=== PATIENT | male | born 1960 | race Caucasian/White ===

== ENCOUNTER 2018-05-04 02:00 | Emergency (ER) | payer OTHER, BC ==
[2018-05-04 02:20] VITALS: TEMP 97.3; BMI 30.2
--- NOTE | 2018-05-04 02:20 | PDOC ---
History of Present Illness - General Chief Complaint: Pain, Acute Stated Complaint: ABD PAIN - History of Present Illness Initial Comments: The patient is a 57M w/ a history of HTN who presents for evaluation of 1m of R flank pain. He reports the pain is intermittent, colickly, worsening, and now radiates towards his R inguinal region. He endorses associated NBNB vomiting when the pain is at its maximum. He has tried taking Naproxen w/ minimal relief. He reports being evaluated at [facility] on Monday w/ a UA w/ +blood. Denies fevers/chills, ENCISO, vision changes, chest pain, SOB, dysuria, gross hematuria, or changes in sensation 05/04/18 02:38 Past History - Past Medical History Allergies/Adverse Reactions: Allergies Allergy/AdvReac Type Severity Reaction Status Date / Time No Known Allergies Allergy Verified 05/04/18 02:20 Home Medications: Ambulatory Orders Amlodipine Besylate [Norvasc -] 5 mg PO DAILY #30 tablet 05/04/18 Review of Systems - Review of Systems Able to Perform ROS?: Yes Comments:: GENERAL/CONSTITUTIONAL: No fever or chills. No weakness HEAD, EYES, EARS, NOSE AND THROAT: No change in vision. No ear pain or discharge. No sore throat CARDIOVASCULAR: No chest pain or shortness of breath RESPIRATORY: Denies cough, hemoptysis GASTROINTESTINAL: No diarrhea or constipation GENITOURINARY: per HPI MUSCULOSKELETAL: No joint or muscle swelling or pain. No neck or back pain SKIN: No rash NEUROLOGIC: No headache, vertigo, loss of consciousness, or change in strength/ sensation ENDOCRINE: No increased thirst. No abnormal weight change HEMATOLOGIC/LYMPHATIC: No anemia, easy bleeding, or history of blood clots ALLERGIC/IMMUNOLOGIC: No hives or skin allergy 05/04/18 02:20 Is the patient limited Palauan proficient: No *Physical Exam - Vital Signs Vital Signs Temp Pulse Resp BP Pulse Ox 97.3 F L 74 18 179/85 H 96 05/04/18 02:19 05/04/18 02:19 05/04/18 02:19 05/04/18 02:19 05/04/18 02:05/04/18 02:42 - Physical Exam Comments: GENERAL: Awake, alert, non-toxic appearing, and fully oriented, in no acute distress HEAD: No signs of trauma, normocephalic, atraumatic EYES: PERRLA, EOMI, sclera anicteric, conjunctiva clear ENT: Hearing grossly normal, nares patent, oropharynx clear without exudates. Moist mucosa LUNGS: No distress, speaks full sentences, clear to auscultation bilaterally HEART: Regular rate and rhythm, normal S1 and S2, no murmurs appreciated, peripheral pulses normal and equal bilaterally BACK: +R CVAT ABDOMEN: Soft, nontender, normoactive bowel sounds. No guarding, no rebound. No masses EXTREMITIES : Normal inspection, Normal range of motion, no edema. No clubbing or cyanosis NEUROLOGICAL: Cranial nerves II through XII grossly intact. Normal speech, no focal sensorimotor deficits SKIN: Warm, Dry 05/04/18 02:20 Medical Decision Making - Medical Decision Making The patient is a 57M w/ a history of HTN who presents for evaluation of 1m of worsening R flank pain concerning for nephrolithiasis. Pt hypertensive on arrival, likely 2/2 pain and running out of home meds. ED Course UA, UCx CT spiral to evaluate for nephrolithiasis Toradol 30mg IV once for pain 05/04/18 02:43 Pt w/ Hx of HTN on Amlodipine 5mg PO daily. Pt ran out of Rx 2/2 no longer having a PMD. Will Rx Amlodipine 5mg PO daily to bridge pt to PMD establishment/ appointment 05/04/18 02:45 CT w/ R nephrolithiasis on my read -Formal read pending Nausea/Vomiting -Zofran 4mg ODT once 05/04/18 03:08 CT w/ R nephrolithiasis, mild hydronephrosis UA w/o evidence of UTI Plan for D/C w/ Urology f/u Discharge instructions and return precautions given Patient in agreement and verbalized understanding Dispo: home 05/04/18 03:28 *DC/Admit/Observation/Transfer Diagnosis at time of Disposition: Nephrolithiasis Hypertension Qualifiers: Hypertension type: unspecified Qualified Code(s): I10 - Essential (primary) hypertension - Discharge Dispostion Disposition: HOME Condition at time of disposition: Stable Decision to Admit order: No - Referrals Referrals: [facility] – [place], [place] [facility] [place] [Provider Group] Daniel Mireles MD [Staff Physician] - Angela Cheek MD [Staff Physician] - Syed Tejada MD [Staff Physician] - - Patient Instructions Printed Discharge Instructions: Kidney Stones -- Adult Additional Instructions: You were seen in the Emergency Department for evaluation of right flank pain and were found to have a kidney stone. Please review the handout provided at discharge. Follow up with Urology, the contact information is in your discharge paperwork. You may continue to take Naproxen 500mg twice a day for pain. Return to the Emergency Department if you develop persistent pain, pain with urination , blood in your urine, inability to tolerate food, or any new/concerning symptoms. A prescription was sent to your pharmacy for Amlodipine 5mg daily for your high blood pressure. Please follow up with one of the referrals given for primary care, or a primary care provider of your choosing. It is important to establish care to maintain control of your blood pressure. - Post Discharge Activity
[2018-05-04] MEDS ORDERED: KETOROLAC TROMETHAMINE 30 MG/1 ML VIAL IM ONE (02:37)
--- NOTE | 2018-05-04 02:38 | PDOC ---
Attending Attestation - Resident Resident Name: Lloyd Malik - ED Attending Attestation I have performed the following: I have examined & evaluated the patient, The case was reviewed & discussed with the resident, I agree w/resident's findings & plan, Exceptions are as noted - HPI HPI: 05/04/18 04:22 57M pmh HTN with 1 month of progressively worsening episodes of R flank px. Current episode px is colicky, sharp, radiating to the R groin. A/w n/v when px spikes, no f/c, sob, cp, dysuria, hematuria - Physicial Exam PE: 05/04/18 04:24 Agree with exam as documented by resident +R CVAT - Medical Decision Making 05/04/18 04:24 Likely nephrolithiasis, consider hepatobiliary pathology, pancreatitis eval for obstruction, infection analgesia f/u imaging
[2018-05-04] MEDS ORDERED: KETOROLAC TROMETHAMINE 30 MG/1 ML VIAL ONE (02:58)
[2018-05-04] MEDS ORDERED: ONDANSETRON *ODT* 4 MG TABLET ONE (03:06)
[2018-05-04] MEDS ORDERED: ONDANSETRON *ODT* 4 MG TABLET SL ONE (03:06)
[2018-05-04 03:10] LABS: URINE APPEARANCE CLEAR; URINE BILIRUBIN NEGATIVE (<2.0 mg/dL); URINE COLOR LTYELLOW; URINE GLUCOSE (UA) 1+ (NEGATIVE); URINE KETONE NEGATIVE (NEGATIVE); URINE LEUK ESTERASE NEGATIVE (NEGATIVE); URINE NITRITE NEGATIVE (NEGATIVE); URINE PROTEIN NEGATIVE (NEGATIVE); URINE UROBILINOGEN NEGATIVE mg/dL (0.2-1.0)
[2018-05-04 04:37] VITALS: BP 166/98; PULSE 71
== END 2018-05-04 04:33 | disposition home or self-care (01) ==
LOC: JER 02:00
PROC: 3E0233Z Introduction of Anti-inflammatory into Muscle, Percutaneous Approach (ICD-10-PCS; principal; 2018-05-04)
DX: I10 Essential (primary) hypertension (principal); N20.0 Calculus of kidney
CPT/HCPCS: 74176; 81003; 87086; 99282-25; Q0162

== ENCOUNTER 2018-08-29 09:38 | Day surgery (SDC) | payer OTHER, BC ==
[2018-08-24 11:38] VITALS: BMI 30.5
[2018-08-29] MEDS ORDERED: LIDOCAINE HCL/PF 2% SDV 5ML VIAL ONE (10:50)
[2018-08-29 12:21] VITALS: BP 160/78
[2018-08-29 12:23] VITALS: PULSE 75; TEMP 98
--- NOTE | 2018-08-31 15:30 | PATH ---
Surgical Pathology Report Patient Name: ASHISH LU [facility]. Rec. #: [id number] /Age/Gender: 1960 (Age: 57) / M Account: [id number] Location: [facility] Taken: 08/29/2018 Received: 08/29/2018 Reported: 08/31/2018 Physicians: Tara Bullock M.D. Specimen(s) Received A: BX THICKENED FOLD JCT OF CECUM & ASCENDING COLON B: HOT SNARE POLYPECTOMY PROXIMAL TRANSVERSE COLON C: BX POLYP MID TRANSVERSE COLON Clinical History Surveillance colonoscopy. Postoperative diagnosis colon, polyps Final Diagnosis A. THICKENED FOLD,JCT OF CECUM AND ASCENDING COLON, BIOPSY: COLONIC MUCOSA SHOWING MILD SURFACE HYPERPLASTIC CHANGE. B. PROXIMAL TRANSVERSE COLON, POLYP, POLYPECTOMY: TUBULAR ADENOMA. C. MID TRANSVERSE COLON, POLYP, BIOPSY: TUBULAR ADENOMA. Electronically Signed Merry Jordan M.D. Gross Description A. Received in formalin, labeled, " bx thickened fold jct of cecum and ascending colon" is one piece of santiago tissue measuring 0.2 cm in greatest dimension. Entirely submitted in one cassette. B. received in formalin, labeled, "polypectomy, proximal transverse colon" are three pieces of santiago, tissue, ranging from 0.2-0.3 cm in greatest dimension. Entirely submitted in one cassette. C. received in formalin, labeled " bx polyp mid transverse colon"" is one piece of santiago tissue measuring 0.3 cm in greatest dimension. Entirely submitted in one cassette. AE/08/30/2018 ebram/08/30/2018
== END 2018-08-29 12:23 | disposition home or self-care (01) ==
LOC: FASU-ENDO 09:38
PROVIDERS: ATTEND Internal Medicine Gastroenterology
PROC: 0DBK8ZX Excision of Ascending Colon, Via Natural or Artificial Opening Endoscopic, Diagnostic (ICD-10-PCS; 2018-08-29)
PROC: 0DBL8ZX Excision of Transverse Colon, Via Natural or Artificial Opening Endoscopic, Diagnostic (ICD-10-PCS; 2018-08-29)
PROC: 0DBH8ZX Excision of Cecum, Via Natural or Artificial Opening Endoscopic, Diagnostic (ICD-10-PCS; 2018-08-29)
PROC: 0DBL8ZX Excision of Transverse Colon, Via Natural or Artificial Opening Endoscopic, Diagnostic (ICD-10-PCS; principal; 2018-08-29 11:15)
DX: Z86.010 Personal history of colon polyps (principal); D12.3 Benign neoplasm of transverse colon; K63.89 Other specified diseases of intestine; K64.2 Third degree hemorrhoids
CPT/HCPCS: 88305-TC

== ENCOUNTER 2021-04-23 13:48 | Emergency (ER) | payer OTHER, BC ==
[2021-04-23 13:56] VITALS: TEMP 98.6; BMI 30.5
[2021-04-23] MEDS ORDERED: SODIUM CHLORIDE 1,000 ML IV STA (14:59)
[2021-04-23] MEDS ORDERED: KETOROLAC TROMETHAMINE 30 MG/1 ML VIAL IVPUSH ONE (15:00)
[2021-04-23] MEDS ORDERED: ONDANSETRON 4 MG/2 ML VIAL IVPUSH ONE (15:33)
[2021-04-23] MEDS ORDERED: ONDANSETRON 4 MG/2 ML VIAL ONE (15:41)
[2021-04-23] MEDS ORDERED: KETOROLAC TROMETHAMINE 30 MG/1 ML VIAL ONE (15:41)
[2021-04-23 16:20] LABS: BASO % 0.3 % (0-2.0); HEMOGLOBIN 16.3 GM/dL (11.7-16.9); LYMPH % 8.2 % (8-40); MEAN CELL VOLUME 85.2 fl (80-96); MEAN PLT VOLUME 9.1 fl (7.5-11.1); MONO % 3.8 % (3.8-10.2); NEUT % 87.7 % (42.8-82.8); PLATELET COUNT 247 10^3/uL (134-434); RBC 5.63 M/mm3 (4.00-5.60); RDW 13.4 % (11.9-15.9); WHITE BLOOD COUNT 11.8 K/mm3 (4.0-10.0)
[2021-04-23 16:38] LABS: ALBUMIN 3.9 g/dl (3.4-5.0); CALCIUM 8.9 mg/dL (8.5-10.1)
[2021-04-23 16:39] LABS: BLOOD UREA NITROGEN 17.4 mg/dL (7-18)
[2021-04-23 16:41] LABS: CREATININE 1.7 mg/dL (0.55-1.3)
[2021-04-23 16:43] LABS: BILIRUBIN,TOTAL 0.6 mg/dL (0.2-1); TOT PROT 7.5 g/dl (6.4-8.2)
[2021-04-23 17:18] LABS: EPI CELLS 4 /uL (0-25.1); HYALINE CASTS 1 /uL (0-3.1); URINE APPEARANCE CLEAR; URINE BACTERIA 16 /uL (0-1359); URINE BILIRUBIN NEGATIVE (NEGATIVE); URINE COLOR YELLOW; URINE GLUCOSE (UA) 1+ (NEGATIVE); URINE KETONE TRACE (NEGATIVE); URINE LEUK ESTERASE NEGATIVE (NEGATIVE); URINE NITRITE NEGATIVE (NEGATIVE); URINE PROTEIN TRACE (NEGATIVE); URINE RBC 18 /uL (0-23.9); URINE UROBILINOGEN 0.2 mg/dL (0.2-1.0); URINE WBC 5 /uL (0-25.8)
[2021-04-23 18:38] VITALS: BP 160/83; PULSE 72
== END 2021-04-23 18:53 | disposition home or self-care (01) ==
LOC: JER 13:48
PROC: 3E033NZ Introduction of Analgesics, Hypnotics, Sedatives into Peripheral Vein, Percutaneous Approach (ICD-10-PCS; principal; 2021-04-23)
PROC: 3E0233Z Introduction of Anti-inflammatory into Muscle, Percutaneous Approach (ICD-10-PCS; 2021-04-23)
PROC: 3E0337Z Introduction of Electrolytic and Water Balance Substance into Peripheral Vein, Percutaneous Approach (ICD-10-PCS; 2021-04-23)
DX: R10.9 Unspecified abdominal pain (principal); N20.0 Calculus of kidney
CPT/HCPCS: 36415; 74176-TC; 80053; 81003; 83690; 85025; 87086; 99285-25

== ENCOUNTER 2022-11-30 10:49 | Day surgery (SDC) | payer BC, OTHER ==
[2022-11-21 15:27] VITALS: BMI 29.1
[2022-11-30 12:52] VITALS: RESP 16; TEMP 97.4
[2022-11-30 13:14] VITALS: BP 141/74; PULSE 87
== END 2022-11-30 13:15 | disposition home or self-care (01) ==
LOC: FASU-ENDO 10:49
PROVIDERS: ATTEND Internal Medicine Gastroenterology
PROC: 0DBL8ZX Excision of Transverse Colon, Via Natural or Artificial Opening Endoscopic, Diagnostic (ICD-10-PCS; 2022-11-30)
PROC: 0DBN8ZX Excision of Sigmoid Colon, Via Natural or Artificial Opening Endoscopic, Diagnostic (ICD-10-PCS; principal; 2022-11-30 12:12)
DX: Z12.11 Encounter for screening for malignant neoplasm of colon (principal); D12.3 Benign neoplasm of transverse colon; D12.5 Benign neoplasm of sigmoid colon; Z86.010 Personal history of colon polyps; K64.1 Second degree hemorrhoids